=== PATIENT | female | born 1970 | race Caucasian/White ===

== ENCOUNTER → 2024-01-01 | Outpatient (CLI) | payer OTHER, SELFPAY ==
[2024-01-01 11:27] LABS: T4 Free Direct 0.97 ng/dL (0.76-1.46)
== END | disposition home or self-care (01) ==
LOC: PAVLAB 10:51
PROVIDERS: PCP Family Medicine; Referring Provider Obstetrics & Gynecology; Visit Provider Obstetrics & Gynecology
DX: Z13.29 Encounter for screening for other suspected endocrine disorder (principal)
CPT/HCPCS: 36415; 84439; 84443

== ENCOUNTER → 2025-07-07 | Outpatient (CLI) | payer OTHER, SELFPAY ==
--- NOTE | 2025-07-07 15:25 | EMB_PTH ---
PATIENT: DASH DELGADO LOC: [facility] U#:[id number] AGE/SX: 54/F ROOM: RE07/07/[address]: AKILAH [place] : 1970 BED: DIS: 07/07/2025 SPEC #: [id number] RECD: 07/07/25 16:49 STATUS: MARI REQ #: [id number] RAMAKRISHNA: 07/07/25 15:[address]: Nata Humphries NP DEPT: SURGICAL PATHOLOGY RECD BY: Allie Christopher ENTERED: 07/08/25 08:31 SP TYPE: ENDOM BX/C HOLLY DR: Dr. Sera Hoff MD Tissues: Endometrium, NOS Procedures: Surgery Specimen Level IV HEADER OPERATION: Endometrial biopsy PRE-OP DIAGNOSIS: Post menopausal bleeding TISSUE SUBMITTED: A- Endometrial tissue MICROSCOPIC DIAGNOSIS A. Endometrium, biopsy: - Scant inactive endometrium and lower uterine segment - see note. Note: Clinical correlation is necessary to assess the adequacy of the sampling. MICROSCOPIC DESCRIPTION Slides are reviewed. GROSS DESCRIPTION A. Received in formalin labeled the patient's name and date of is a 2.8 x 2.3 x 0.3 cm aggregate of blood-tinged mucoid material and red-brown tissue fragments. Entirely submitted in 1 cassette. NM 07/08/2025 CPT:28962
== END | disposition home or self-care (01) ==
LOC: LABSPEC 15:59
PROVIDERS: PCP Family Medicine; Visit Provider Nurse Practitioner Women's Health
DX: N95.0 Postmenopausal bleeding (principal)
CPT/HCPCS: 88305

== ENCOUNTER → 2025-07-16 | Outpatient (CLI) | payer OTHER, SELFPAY ==
--- NOTE | 2025-07-16 14:31 | US_ITS ---
PROCEDURE: PELVIC W/ TRANSVAGINAL 07/16/2025 REASON FOR EXAM: PMB Last menses was 2 years ago. Patient has had recent spotting. TECHNIQUE: Procedure Code: [id number] Modality: US Procedure: PELVIC W/ TRANSVAGINAL COMPARISON: None FINDINGS: Measurements: Uterus: 7.7 x 4.9 x 3.0 with a volume of 59.3 mL Endometrial Thickness: 3 mm Right Ovary: No abnormal adnexal masses are noted. Left Ovary: No abnormal adnexal masses are noted. Uterus: The uterus is anteverted. There is a hypoechoic heterogeneous mass within the myometrium of the uterus on the left side measuring 2.1 x 1.8 x 1.8 cm. This is most compatible with a uterine fibroid. There are nabothian cysts within the cervix. 1 of which has calcifications. There is no IUD. Endometrium: Endometrium is hyperechoic. There are no IUDs. Right ovary: Not visualized. Left ovary: Not visualized. Other: There is no fluid within the cul-de-sac. The urinary bladder measures 10.2 by 10.3 x 7.6 cm. Urinary bladder volume is 419 mL. The bladder wall is smooth. There are no masses seen within the urinary bladder. US/Pelvic w/ Transvaginal IMPRESSION: Endometrial stripe is not abnormally thickened. If the patient's symptoms of p ostmenopausal bleeding do continue, a surgical consult or endometrial biopsy may be of value to exclude malignancy. Neither ovary was visualized. Reading Location: [id number]
== END | disposition home or self-care (01) ==
LOC: US 14:30
PROVIDERS: PCP Family Medicine; Referring Provider Nurse Practitioner Women's Health; Visit Provider Nurse Practitioner Women's Health
DX: N95.0 Postmenopausal bleeding (principal)
CPT/HCPCS: 76830; 76856